=== PATIENT | female | born 1995 | race African-American/Black ===

== ENCOUNTER 2025-03-21 07:08 | Inpatient (IN) | payer SELFPAY ==
[2025-03-21] VITALS (51 sets, daily range): BP systolic 116–173; BP diastolic 65–117; PULSE 96–114; RESP 12–25; TEMP 36.22512–37.0296; O2SAT 91–100
[~2025-03-21] VITALS: Ht 175.3 cm; Wt 95.7 kg
[2025-03-21] MEDS ORDERED: NICARDIPINE 50 MG in SODIUM CHLORIDE 0.9% 230 ML IV SCH (08:00)
[2025-03-21 08:02] LABS: BASOPHILS % 1.6 % (0.0-2.0); EOSINOPHILS % 4.9 % (0.0-5.0); HEMATOCRIT. 26.0 % (36.0-48.0); HEMOGLOBIN. 8.0 g/dL (12.0-16.0); LYMPHOCYTES % 18.4 % (20.0-50.0); MEAN PLATELET VOLUME 9.4 fl (7.4-10.4); MONOCYTES % 4.5 % (2.0-8.0); NEUTROPHILS % 70.6 % (40.0-76.0); PLATELET 384 x1000/uL (130-400); RED BLOOD CELL COUNT 3.46 mill/uL (4.2-5.4); RED CELL DISTRIBUTION WIDTH 17.6 % (11.6-14.6)
[2025-03-21 08:21] LABS: UREA NITROGEN BLOOD 58 mg/dL (9-23)
[2025-03-21 08:22] LABS: TROPONIN I HIGH SENSITIVITY 28 ng/L (3.0-34)
[2025-03-21 08:24] LABS: CREATININE 8.6 mg/dL (0.6-1.0)
[2025-03-21 08:37] LABS: HCG SCREEN NEGATIVE
[2025-03-21] MEDS: NICARDIPINE 40MG/200ML PREMIX 200 ML IV PRN (08:42)
[2025-03-21] MEDS: SODIUM CHLORIDE 0.9% 1,000 ML IV ONE (09:20)
[2025-03-21 10:14] LABS: TROPONIN I HIGH SENSITIVITY 26 ng/L (3.0-34)
[2025-03-21 10:18] LABS: INR 1.0
[2025-03-21] MEDS: LIDOCAINE HCL 1% 10 MG/ML 10ML VIAL ONE ×2 (10:39→11:15)
[2025-03-21 11:43] LABS: CLARITY URINE CLEAR (CLEAR); COLOR URINE YELLOW (YELLOW); SPECIFIC GRAVITY URINE 1.017 (1.005-1.030)
[2025-03-21 11:44] LABS: GLUCOSE URINE 2+ (NEGATIVE); KETONES URINE NEGATIVE (NEGATIVE); PH URINE 6.5 (4.5-8.0); PROTEIN URINE 3+ (NEGATIVE)
[2025-03-21 11:45] LABS: LEUKOCYTE ESTERASE URINE NEGATIVE (NEGATIVE); NITRITE URINE NEGATIVE (NEGATIVE); OCCULT BLOOD URINE 2+ (NEGATIVE); UROBILINOGEN URINE 0.2 E.U./dL (0.2-1.0)
[2025-03-21 11:52] LABS: HEPATITIS A AB IGM NEGATIVE (Negative)
[2025-03-21 11:53] LABS: HEPATITIS B CORE AB IGM NEGATIVE (Negative); HEPATITIS C AB NON REACTIVE (Neg) (Negative)
[2025-03-21 12:22] LABS: SQUAMOUS EPITHELIAL CELL URINE 2+ /lpf (RARE/1+)
[2025-03-21 12:25] LABS: RBC URINE 0-2 /hpf (0-2)
[2025-03-21 12:26] LABS: BACTERIA URINE 2+
[2025-03-21] MEDS: IOHEXOL-350 100 ML BOTTLE ONE (14:18)
[2025-03-21] MEDS: NICARDIPINE 50 MG in SODIUM CHLORIDE 0.9% 230 ML IV PRN (14:38)
[2025-03-21] MEDS ORDERED: DOCUSATE SODIUM 100MG CAPSULE PO PRN (17:45)
[2025-03-21] MEDS ORDERED: IPRATROPIUM/ALBUTEROL 0.5-3(2.5)MG/3ML NEB HHN PRN (17:45)
[2025-03-21] MEDS ORDERED: ACETAMINOPHEN 325MG TABLET PO PRN ×2 (17:45)
[2025-03-21] MEDS ORDERED: NICARDIPINE 40 MG/200 ML PREMIX 200 ML IV PRN (19:15)
[2025-03-22] VITALS (70 sets, daily range): BP systolic 129–171; BP diastolic 80–113; PULSE 72–99; RESP 12–23; TEMP 36.5–36.9; O2SAT 91–100
[2025-03-22] MEDS: CLONIDINE 0.1MG TABLET PO PRN (04:18)
[2025-03-22 06:05] LABS: *AMPHETAMINES SCREEN URINE NEGATIVE (NEGATIVE); *BENZODIAZEPINES SCREEN URINE NEGATIVE (NEGATIVE)
[2025-03-22 06:06] LABS: *BARBITURATES SCREEN URINE NEGATIVE (NEGATIVE); *COCAINE SCREEN URINE NEGATIVE (NEGATIVE); ECSTASY MDMA SCREEN URINE NEGATIVE (NEGATIVE); METHADONE URINE SCREEN NEGATIVE (NEGATIVE); OPIATES URINE SCREEN NEGATIVE (NEGATIVE); PHENCYCLIDINE URINE SCREEN NEGATIVE (NEGATIVE)
[2025-03-22 06:19] LABS: UREA NITROGEN BLOOD 32.0 mg/dL (9-23)
[2025-03-22 06:24] LABS: CANNABINOID URINE SCREEN NEGATIVE (NEGATIVE)
[2025-03-22 06:29] LABS: CREATININE 5.9 mg/dL (0.6-1.0)
[2025-03-22] MEDS ORDERED: DEXTROSE 50% WATER 50ML SYRINGE IV PRN (12:00)
[2025-03-22] MEDS: INSULIN LISPRO 100 UNITS/ML SUBCUT SCH (12:37)
[2025-03-22] MEDS: BLOOD SUGAR DIAGNOSTIC STRIP TEST SCH (16:30)
[2025-03-22] MEDS: HYDRALAZINE HCL 25MG TABLET PO SCH (21:06)
[2025-03-22] MEDS: LISINOPRIL 20MG TABLET PO SCH (21:07)
[2025-03-22] MEDS: LABETALOL 5MG/ML 4ML INJ IV NR (23:23)
[2025-03-23] VITALS (39 sets, daily range): BP systolic 115–170; BP diastolic 48–104; PULSE 73–96; RESP 12–25; TEMP 36.3918–36.8; O2SAT 94–100
[2025-03-23] MEDS: HYDRALAZINE HCL 25MG TABLET PO SCH (06:02)
[2025-03-23 06:03] LABS: BASOPHILS % 1.3 % (0.0-2.0); EOSINOPHILS % 8.5 % (0.0-5.0); LYMPHOCYTES % 34.0 % (20.0-50.0); MEAN PLATELET VOLUME 9.5 fl (7.4-10.4); MONOCYTES % 8.1 % (2.0-8.0); NEUTROPHILS % 48.1 % (40.0-76.0); PLATELET 270 x1000/uL (130-400); RED BLOOD CELL COUNT 2.66 mill/uL (4.2-5.4); RED CELL DISTRIBUTION WIDTH 17.4 % (11.6-14.6)
[2025-03-23 06:54] LABS: UREA NITROGEN BLOOD 38 mg/dL (9-23)
[2025-03-23 06:56] LABS: ASPARTATE AMINOTRANSFERASE 11 IU/L (<34); BILIRUBIN TOTAL 0.2 mg/dL (0.1-1.0); PROTEIN TOTAL 5.3 g/dL (6.0-8.3)
[2025-03-23 07:06] LABS: CREATININE 7.2 mg/dL (0.6-1.0)
[2025-03-23 08:20] LABS: HEMATOCRIT. 20.5 % (36.0-48.0); HEMOGLOBIN. 6.2 g/dL (12.0-16.0)
[2025-03-23] MEDS: NIFEDIPINE XL 60MG TAB PO SCH (09:07)
[2025-03-23] MEDS: IRON SUCROSE COMPLEX 100 MG/5 ML ML IV SCH (14:41)
[2025-03-23] MEDS: HYDRALAZINE HCL 50MG TABLET PO SCH (14:43)
[2025-03-23] MEDS: CLONIDINE 0.1MG TABLET PO SCH (14:44)
[2025-03-23] MEDS ORDERED: METF-414 MT (20:11)
[2025-03-23] MEDS ORDERED: AMLO10TA80 MT (20:12)
[2025-03-24] VITALS: BP 123/76; PULSE 90; RESP 17; TEMP 36.4; O2SAT 96
[2025-03-24 04:00] VITALS: BP 119/69; PULSE 80; RESP 17; TEMP 36.5; O2SAT 95
[2025-03-24 07:20] LABS: BASOPHILS % 1.0 % (0.0-2.0); EOSINOPHILS % 3.0 % (0.0-5.0); HEMATOCRIT. 21.9 % (36.0-48.0); LYMPHOCYTES % 21.5 % (20.0-50.0); MEAN PLATELET VOLUME 9.9 fl (7.4-10.4); MONOCYTES % 7.3 % (2.0-8.0); NEUTROPHILS % 67.2 % (40.0-76.0); PLATELET 277 x1000/uL (130-400); RED BLOOD CELL COUNT 2.98 mill/uL (4.2-5.4); RED CELL DISTRIBUTION WIDTH 17.5 % (11.6-14.6)
[2025-03-24 07:27] LABS: UREA NITROGEN BLOOD 23.0 mg/dL (9-23)
[2025-03-24 07:51] LABS: HEMOGLOBIN. 6.9 g/dL (12.0-16.0)
[2025-03-24 08:00] VITALS: BP 122/64; PULSE 84; RESP 18; TEMP 36.6; O2SAT 100
[2025-03-24 08:14] LABS: CREATININE 5.3 mg/dL (0.6-1.0)
[2025-03-24] MEDS ORDERED: HYDR50TA39 PO (09:22)
[2025-03-24] MEDS ORDERED: NIFE-32 PO (09:22)
[2025-03-24] MEDS ORDERED: CLON0.1T PO (09:22)
[2025-03-24] MEDS: ONDANSETRON HCL 4MG/2ML INJ IV PRN (09:58)
[2025-03-24 12:40] VITALS: BP 120/67; PULSE 89; RESP 18; TEMP 36.7; O2SAT 98
[2025-03-24 16:00] VITALS: BP 132/70; PULSE 80; RESP 20; TEMP 36.5; O2SAT 98
[2025-03-24 20:00] VITALS: BP 139/74; PULSE 89; RESP 20; TEMP 36.7; O2SAT 97
[2025-03-24] MEDS: EPOETIN ALFA-EPBX 4,000 UNIT/ML VIAL SUBCUT SCH (21:42)
[2025-03-25] VITALS (12 sets, daily range): BP systolic 128–163; BP diastolic 59–88; PULSE 81–99; RESP 16–20; TEMP 36.6–37.8; O2SAT 95–100
[2025-03-25] MEDS: HYDRALAZINE 20MG/ML VIAL IV SCH (11:04)
[2025-03-25 22:10] LABS: BASOPHILS % 1.1 % (0.0-2.0); EOSINOPHILS % 1.6 % (0.0-5.0); HEMATOCRIT. 28.9 % (36.0-48.0); HEMOGLOBIN. 9.2 g/dL (12.0-16.0); LYMPHOCYTES % 18.4 % (20.0-50.0); MEAN PLATELET VOLUME 10.2 fl (7.4-10.4); MONOCYTES % 6.0 % (2.0-8.0); NEUTROPHILS % 72.9 % (40.0-76.0); PLATELET 325 x1000/uL (130-400); RED BLOOD CELL COUNT 3.80 mill/uL (4.2-5.4); RED CELL DISTRIBUTION WIDTH 17.9 % (11.6-14.6)
[2025-03-25 22:18] LABS: UREA NITROGEN BLOOD 39.0 mg/dL (9-23)
[2025-03-25 22:29] LABS: CREATININE 7.4 mg/dL (0.6-1.0)
[2025-03-26] VITALS (12 sets, daily range): BP systolic 88–177; BP diastolic 70–114; PULSE 79–103; RESP 14–20; TEMP 36.28068–37.1; O2SAT 94–100
[2025-03-26 08:02] LABS: BASOPHILS % 1.1 % (0.0-2.0); EOSINOPHILS % 4.2 % (0.0-5.0); HEMATOCRIT. 24.1 % (36.0-48.0); HEMOGLOBIN. 7.8 g/dL (12.0-16.0); LYMPHOCYTES % 25.9 % (20.0-50.0); MEAN PLATELET VOLUME 10.1 fl (7.4-10.4); MONOCYTES % 6.6 % (2.0-8.0); NEUTROPHILS % 62.2 % (40.0-76.0); PLATELET 242 x1000/uL (130-400); RED BLOOD CELL COUNT 3.16 mill/uL (4.2-5.4); RED CELL DISTRIBUTION WIDTH 17.6 % (11.6-14.6)
[2025-03-26 08:08] LABS: ADD RBC MORPHOLOGY YES
[2025-03-26 08:09] LABS: INR 1.1
[2025-03-26 08:14] LABS: UREA NITROGEN BLOOD 40 mg/dL (9-23)
[2025-03-26 08:16] LABS: FOLIC ACID (FOLATE) SERUM 5.14 ng/mL (>5.38); PHOSPHORUS 5.7 mg/dL (2.5-4.9)
[2025-03-26 08:17] LABS: VITAMIN B12 SERUM 795 pg/mL (211-911)
[2025-03-26 08:23] LABS: CREATININE 7.6 mg/dL (0.6-1.0)
[2025-03-26] MEDS ORDERED: MAGNESIUM 2 G PREMIX 50 ML IV NR (09:00)
[2025-03-26] MEDS: FOLIC ACID 1MG TABLET PO SCH (09:15)
[2025-03-26 09:32] LABS: PLATELET ESTIMATE NORMAL
[2025-03-26] MEDS: MAGNESIUM 2 G PREMIX 50 ML IV NR (14:04)
[2025-03-26] MEDS: FERROUS SULFATE 325MG TABLET PO SCH (16:44)
[2025-03-26] MEDS: DIATR MEGLU/DIATRIZOATE SOLN 30ML PO SCH (17:41)
[2025-03-26] MEDS: DOCUSATE SODIUM 100MG CAPSULE PO SCH (21:40)
[2025-03-27] VITALS: BP 123/62; PULSE 96; RESP 16; TEMP 36.6; O2SAT 96
[2025-03-27 04:00] VITALS: BP 144/82; PULSE 85; RESP 19; TEMP 36.9; O2SAT 96
[2025-03-27 08:00] VITALS: BP 141/90; PULSE 95; RESP 17; TEMP 36.8; O2SAT 99
[2025-03-27] MEDS: ASCORBIC ACID 500 MG TABLET PO SCH (08:17)
[2025-03-27 10:53] LABS: BASOPHILS % 1.2 % (0.0-2.0); EOSINOPHILS % 3.8 % (0.0-5.0); HEMATOCRIT. 25.7 % (36.0-48.0); HEMOGLOBIN. 8.0 g/dL (12.0-16.0); LYMPHOCYTES % 17.6 % (20.0-50.0); MEAN PLATELET VOLUME 10.1 fl (7.4-10.4); MONOCYTES % 8.9 % (2.0-8.0); NEUTROPHILS % 68.5 % (40.0-76.0); PLATELET 246 x1000/uL (130-400); RED BLOOD CELL COUNT 3.32 mill/uL (4.2-5.4); RED CELL DISTRIBUTION WIDTH 18.0 % (11.6-14.6)
[2025-03-27 11:22] LABS: UREA NITROGEN BLOOD 29 mg/dL (9-23)
[2025-03-27 11:23] LABS: ASPARTATE AMINOTRANSFERASE 10 IU/L (<34)
[2025-03-27 11:24] LABS: BILIRUBIN TOTAL 0.2 mg/dL (0.1-1.0); PHOSPHORUS 4.7 mg/dL (2.5-4.9); PROTEIN TOTAL 5.6 g/dL (6.0-8.3)
[2025-03-27 11:33] LABS: CREATININE 5.9 mg/dL (0.6-1.0)
[2025-03-27 12:00] VITALS: BP 128/63; PULSE 99; RESP 17; TEMP 36.7; O2SAT 97
[2025-03-27 16:00] VITALS: BP 148/81; PULSE 97; RESP 16; TEMP 36.6; O2SAT 99
[2025-03-27 20:00] VITALS: BP 153/81; PULSE 95; RESP 17; TEMP 36.6; O2SAT 100
[2025-03-28] VITALS: BP 135/64; PULSE 95; RESP 17; TEMP 36.6; O2SAT 100
[2025-03-28 04:00] VITALS: BP 141/82; PULSE 91; RESP 18; TEMP 36.7; O2SAT 98
[2025-03-28 08:00] VITALS: BP 174/97; PULSE 91; RESP 20; TEMP 36.5; O2SAT 97
[2025-03-28 10:05] VITALS: BP 149/89; PULSE 91; TEMP 97.7; O2SAT 97
== END 2025-03-28 11:00 | disposition home or self-care (01) | DRG 194 ==
LOC: ER 07:08 → EDBEDREQ 10:11 → EDBEDREQSVC 10:11 → EDBEDREQTM 10:11 → ENRESERV 10:18 → MICUNO 10:49 → 8WST 03-23 19:10
PROVIDERS: ADMIT Internal Medicine; ATTEND Internal Medicine
PROC: 5A1D70Z Performance of Urinary Filtration, Intermittent, Less than 6 Hours Per Day (ICD-10-PCS; principal; 2025-03-21)
PROC: 02HV33Z Insertion of Infusion Device into Superior Vena Cava, Percutaneous Approach (ICD-10-PCS; 2025-03-21)
PROC: B548ZZA Ultrasonography of Superior Vena Cava, Guidance (ICD-10-PCS; 2025-03-21)
PROC: 5A1D70Z Performance of Urinary Filtration, Intermittent, Less than 6 Hours Per Day (ICD-10-PCS; 2025-03-22)
PROC: 5A1D70Z Performance of Urinary Filtration, Intermittent, Less than 6 Hours Per Day (ICD-10-PCS; 2025-03-23)
PROC: 30233N1 Transfusion of Nonautologous Red Blood Cells into Peripheral Vein, Percutaneous Approach (ICD-10-PCS; 2025-03-25)
PROC: 5A1D70Z Performance of Urinary Filtration, Intermittent, Less than 6 Hours Per Day (ICD-10-PCS; 2025-03-26)
DX: I13.2 Hypertensive heart and chronic kidney disease with heart failure and with stage 5 chronic kidney disease, or end stage renal disease (principal); N17.9 Acute kidney failure, unspecified; I31.39 Other pericardial effusion (noninflammatory); E87.20 Acidosis, unspecified; D50.9 Iron deficiency anemia, unspecified; N18.6 End stage renal disease; E10.22 Type 1 diabetes mellitus with diabetic chronic kidney disease; E53.8 Deficiency of other specified B group vitamins; F12.90 Cannabis use, unspecified, uncomplicated; I50.33 Acute on chronic diastolic (congestive) heart failure; I16.1 Hypertensive emergency; R09.89 Other specified symptoms and signs involving the circulatory and respiratory systems; K57.30 Diverticulosis of large intestine without perforation or abscess without bleeding; Z79.4 Long term (current) use of insulin; Z79.84 Long term (current) use of oral hypoglycemic drugs; Z91.148 Patient's other noncompliance with medication regimen for other reason
CPT/HCPCS: 36415; 36556; 71045; 71275; 74176; 77001; 80048; 80053; 80305; 81003; 82270; 82607; 82728; 82746; 82962; 82977; 83036; 83540; 83550; 83735; 83880; 84100; 84484; 84703; 85014; 85018; 85025; 85044; 85379; 86038; 86705; 86706; 86709; 86850; 86900; 86920; 87340; 90935; 93005; 93306; 93970; 94640; 99291; A4606; C1752; C1769; C1887; J0360; J0885; J1815; J2003; J2405; J3475; J3490; J7030; P9016; Q9963; Q9967